=== PATIENT | male | born 1990 | race Two or more races ===

== ENCOUNTER 2023-04-01 03:28 | Emergency (ER) | payer OTHER ==
[~2023-04-01] VITALS: Ht 180.3 cm; Wt 81.6 kg
[2023-04-01 05:12] LABS: HEMATOCRIT 43.3 % (39.0-48.0); MEAN CELL VOLUME 95.5 fL (80.0-100.00); MEAN CORPUSCULAR HGB CONC 34.5 g/dl (32.0-36.0); PLATELET COUNT 206 K/uL (150-450); RED BLOOD COUNT 4.54 M/uL (4.00-6.00); RED CELL DISTRIBUTION WIDTH 12.3 % (11.5-14.5)
[2023-04-01 05:36] LABS: ALBUMIN 4.3 gm/dL (3.4-5.0); BILIRUBIN TOTAL 0.53 mg/dL (0.3-1.2); CALCIUM 8.9 mg/dL (8.5-10.1); CREATININE SERUM 0.99 mg/dL (0.70-1.30); GFR 88.76; GLOBULINA 3.6 G/DL (2.4-3.5); POTASSIUM 4.24 mEq/L (3.5-5.1); TOTAL PROTEIN 7.9 gm/dL (6.4-8.2)
[2023-04-01] MEDS ORDERED: PEPCID AC20 MG PO (05:47)
[2023-04-01] MEDS ORDERED: ZOFRAN8 MG PO (05:47)
== END 2023-04-01 05:54 | disposition home or self-care (01) ==
LOC: ER 03:28
PROVIDERS: General Practice
DX: R53.81 Other malaise (principal); A05.9 Bacterial foodborne intoxication, unspecified